=== PATIENT | female | born 1990 | race African-American/Black ===

== ENCOUNTER 2018-03-12 17:36 | Emergency (ER) | payer MEDICAID, OTHER ==
[~2018-03-12] VITALS: Ht 170.2 cm; Wt 85.0 kg
[2018-03-12 18:19] LABS: CLARITY URINE CLEAR (CLEAR); COLOR URINE YELLOW (YELLOW); KETONES URINE TRACE (NEGATIVE); LEUKOCYTE ESTERASE URINE NEGATIVE (NEGATIVE); NITRITE URINE NEGATIVE (NEGATIVE); OCCULT BLOOD URINE NEGATIVE (NEGATIVE); PROTEIN URINE NEGATIVE (NEGATIVE); SPECIFIC GRAVITY URINE 1.031 (1.005-1.030)
[2018-03-12 21:00] VITALS: BP 110/61
[2018-03-15 14:19] LABS: CHLAMYDIA TRACHOMATIS NAA Negative (Negative); NEISSERIA GONORRHOEAE NAA Negative (Negative)
== END 2018-03-12 23:06 | disposition home or self-care (01) ==
LOC: ER 22:51
DX: N89.8 Other specified noninflammatory disorders of vagina (principal); F12.10 Cannabis abuse, uncomplicated
CPT/HCPCS: 81003; 81025; 87210; 87491; 87591; 99284